=== PATIENT | female | born 1985 | race Caucasian/White ===

== ENCOUNTER 2021-10-17 08:29 | Emergency (ER) | payer OTHER ==
[2021-10-17 09:21] LABS: BILIRUBIN NEGATIVE (NEGATIVE); BLOOD 3+ Ery/uL (NEGATIVE); CLARITY CLEAR (CLEAR); COLOR YELLOW (YELLOW); GLUCOSE (U) NORMAL (NORMAL); LEUKOCYTES TRACE Leu/uL (NEGATIVE); NITRITE NEGATIVE (NEGATIVE); PROTEIN TRACE (LOW) mg/dL (NEGATIVE)
[2021-10-17 09:31] LABS: SQUAMOUS EPITHELIAL CELLS 20-50; URINARY WBC RARE
[2021-10-17 09:47] LABS: BASOPHIL 0.3 % (0-2); EOSINOPHIL 0 % (0-5); HCT 33.8 % (37.0-47.0); LYMPHOCYTE 8.3 % (15-48); MCH 27.8 pg (25.0-31.0); MCHC 32.5 g/dL (32.0-36.0); MCV 85.4 fL (78.0-100.0); MONOCYTE 2.6 % (0-12); MPV 9.8 fL (6.0-9.5); NEUTROPHIL 88.2 % (41-80); NRBC 0; PLT 301 K/uL (150-400); RBC 3.96 M/uL (4.20-5.40); RDW 15.1 % (11.5-14.0); WBC 10.8 K/uL (4.0-10.5)
[2021-10-17 10:12] LABS: ALBUMIN 3.8 g/dL (3.4-5.0); BILIRUBIN - TOTAL 0.4 mg/dL (0.2-1.0); CREATININE 0.72 mg/dL (0.51-0.95); GLOBULIN (CALCULATION) 3.7 g/dL; POTASSIUM 3.3 mmol/L (3.5-5.1); TOTAL PROTEIN 7.5 g/dL (6.4-8.2)
[2021-10-17] MEDS ORDERED: FLOMAX 0.4 MG0.4 MG PO (11:11)
[2021-10-17] MEDS ORDERED: NORCO 5/3251 EACH PO (11:11)
[2021-10-17] MEDS ORDERED: KETOROLAC TROME10 MG PO (11:11)
== END 2021-10-17 11:30 | disposition home or self-care (01) ==
LOC: FER 08:29
PROVIDERS: Emergency Medicine
DX: N13.2 Hydronephrosis with renal and ureteral calculous obstruction (principal); Z28.310 Unvaccinated for COVID-19
CPT/HCPCS: 36415; 80053; 81001; 85025; J1885; J2405